=== PATIENT | female | born 1990 | race Caucasian/White ===

== ENCOUNTER 2017-11-08 14:02 | Emergency (ER) | payer OTHER ==
[~2017-11-08] VITALS: Ht 157.5 cm; Wt 52.2 kg
[~2017-11-08 14:02] MED LIST: CLINDAMYCIN HC300 M1 PO; IBUPROFEN800 M1 PO; ZOFRAN ODT4 M1 SL
[2017-11-08 14:10] VITALS: BP 125/75
--- NOTE | 2017-11-21 13:09 | ED HEADACHE COMPLAINT ---
History of Present Illness General Chief Complaint: Eye Problems Stated Complaint: W[facility]EN ROMEO EYE PAIN AND PRESSURE, 14 WEEK Source: patient Exam Limitations: no limitations Vital Signs & Intake/Output Vital Signs & Intake/Output reviewed Allergies Coded Allergies: amoxicillin (GI UPSET 09/23/16) codeine (VOMITING 11/08/17) Uncoded Allergies: DIAL SOAP (Intermediate, RASH 10/03/11) Reconcile Medications Clindamycin HCl 300 MG CAPSULE 1 CAP PO 4 TIMES/DAY INFECTION Ibuprofen 800 MG TABLET 1 TAB PO TID PAIN Ondansetron (Zofran Odt) 4 MG TAB.RAPDIS 1 TAB SL TID PRN NAUSEA Triage Note: PT STATES SHE IS HAVING EYE PAIN AND IS CURRENTLY GETTING R/O FOR GRAVES DISEASE. PT STATES SHE IS 14WEEKS AND IS HAVING SUTTON. BP 125/75 IN TRIAGE. Triage Nurses Notes Reviewed? yes : Yes Patient currently breastfeeds: No HPI: 27 YO MARYJANE who is 14 weeks and currently being worked up for Grave's disease noted bilateral eye pressure earlier today which has since resolved. She denies photophobia, visual loss, diplopia, neck pain, pressure, leg swelling. She has no symptoms at this time. Past History Travel History Traveled to [place] past 21 day No Medical History Any Pertinent Medical History? see below for history Neurological: NONE EENT: NONE Cardiovascular: NONE Respiratory: NONE Gastrointestinal: NONE Hepatic: NONE Renal: NONE Musculoskeletal: NONE Psychiatric: NONE Endocrine: NONE Other Medical Hx: poor dentition Surgical History Surgical History: none Psychosocial History What is your primary language Bulgarian Tobacco Use: Never used ETOH Use: denies use Illicit Drug Use: denies illicit drug use Family History Hx Contributory? No Review of Systems Review of Systems Constitutional: Reports: see HPI. Denies: no symptoms, chills, diaphoresis, fever, malaise, weakness, unexplained weight loss. All Other Systems: Reviewed and Negative Physical Exam Physical Exam General Appearance: well developed/nourished, no apparent distress, alert, awake Head: atraumatic, normal appearance Eyes: Bilateral: normal appearance, PERRL, EOMI. Ears, Nose, Throat: normal pharynx, normal ENT inspection, hearing grossly normal Neck: normal inspection, supple, full range of motion, trachea midline Respiratory: normal breath sounds, chest non-tender, no respiratory distress, quiet respiration, lungs clear Cardiovascular: regular rate/rhythm Gastrointestinal: normal bowel sounds, soft, non-tender Back: normal inspection, normal range of motion Extremities: normal inspection, normal capillary refill, normal range of motion, no edema Psychiatric: awake, alert, oriented x 3 Cranial Nerves: normal hearing, normal speech, PERRL Coordination/Gait: normal finger to nose, normal gait Motor/Sensory: no motor/sensory deficits Reflexes: 4+: bicep (R), bicep (L), tricep (R), tricep (L). Skin: intact, normal color, warm/dry Core Measures Sepsis Present: No Sepsis Focused Exam Completed? No Progress Differential Diagnosis: cav sinus thromb, cluster SUTTON, intracranial Hem., meningitis, migraine SUTTON, sinusitis, subarach. Hem., tension SUTTON Plan of Care: No work up needed as patient is asymptomatic. Departure Departure Disposition: HOME OR SELF CARE Condition: Stable Clinical Impression Primary Impression: Headache Qualifiers: Headache type: tension-type Secondary Impressions: Eyelid pain of both eyes Referrals: Patient Has No Primary Care Dr (PCP/Family) Departure Forms: Customer Survey General Discharge Information
== END 2017-11-08 16:37 ==
LOC: ERH 14:02
DX: O26.92 Pregnancy related conditions, unspecified, second trimester (principal); R51 Headache; H57.13 Ocular pain, bilateral; Z3A.14 14 weeks gestation of pregnancy